=== PATIENT | male | born 1965 | race Caucasian/White ===

== ENCOUNTER 2018-05-23 07:59 | Emergency (ER) | payer SELFPAY ==
[2018-05-23] MEDS ORDERED: KETOROLAC 30 MG/ML VIAL IM ONE (08:07)
[2018-05-23] MEDS ORDERED: METHYLPREDNISOLONE 80MG/VIAL IM ONE (08:07)
--- NOTE | 2018-05-23 08:13 | Emergency Department Record ---
History of Present Illness - General Chief complaint: Pain Stated complaint: LEFT HIP PAIN Time Seen by Provider: 05/23/18 08:06 Source: Patient Mode of Arrival: Ambulatory Limitations: No limitations - History of Present Illness Initial comments: 53 yo male presents with left hip pain for a day. He reports he woke up yesterday with the pain. The pain starts in the hip and radiates down the leg. He has had the pain in the past. He has seen his PCP and a chiropractor for the pain. No weakness, numbness, changes in bowel or bladder issues. No history of hip surgery. He has been told he has lumbar disc disease. MD Complaint: Joint pain -: Days(s) (1) Location: Left History of Same: Yes -: Yes Arthralgia, Yes Myalgia Radiation: Proximal Quality: Aching Consistency: Constant Improves with: Immobilization Worsens with: Exertion, Palpation, Walking, Weight bearing Associated Symptoms: Denies other symptoms - Related Data Home Medications Medication Instructions Recorded Confirmed Last Taken Hydrocodone/Acetaminophen [[place] 1 each PO Q6H PRN 05/23/18 05/23/18 Unknown 10-325 Tablet] Lisinopril 10 mg PO DAILY 05/23/18 05/23/18 Unknown Tizanidine HCl [Zanaflex] 2 mg PO DAILY 05/23/18 05/23/18 Unknown Previous Rx's Medication Instructions Recorded Methylprednisolone [Medrol Dose 4 mg PO DAILY #1 tab.ds.pk 05/23/18 Pack] Allergies Allergy/AdvReac Type Severity Reaction Status Date / Time bee venom protein (honey bee) Allergy SWELLING Verified 05/23/18 08:11 (GENERAL) Penicillins Allergy PT UNSURE Verified 05/23/18 08:11 OF REACTION Review of Systems Constitutional: Denies: Chills, Fever, Malaise, Weakness Eyes: Denies: Eye discharge ENT: Denies: Congestion, Throat pain Respiratory: Denies: Cough Cardiovascular: Denies: Chest pain, Palpitations, Syncope Endocrine: Denies: Fatigue Gastrointestinal: Denies: Abdominal pain, Diarrhea, Nausea, Vomiting Genitourinary: Denies: Dysuria, Frequency, Hematuria Musculoskeletal: Reports: Arthralgia, Back pain, Myalgia. Denies: Joint swelling, Neck pain Skin: Denies: Bruising, Change in color, Rash Neurological: Denies: Abnormal gait, Headache, Numbness, Paresthesias, Tingling , Weakness Psychiatric: Denies: Anxiety Hematological/Lymphatic: Denies: Blood Clots, Easy bleeding, Easy bruising, Swollen glands Physical Exam - General General Appearance: Alert, Oriented x3, Cooperative, No acute distress Limitations: No limitations - Head Head exam: Atraumatic, Normal inspection - Eye Eye exam: Normal appearance. negative: Conjunctival injection, Scleral icterus - ENT ENT exam: Normal exam Ear exam: Normal external inspection Nasal Exam: Normal inspection Mouth exam: Normal external inspection - Neck Neck exam: Normal inspection, Full ROM. negative: Tenderness - Respiratory Respiratory exam: Normal lung sounds bilaterally. negative: Respiratory distress - Cardiovascular Cardiovascular Exam: Regular rate, Normal rhythm, Normal heart sounds - Rectal Rectal exam: Deferred - exam: Deferred - Extremities Extremities exam: Normal inspection, Full ROM, Normal capillary refill, Tenderness (lateral left hip). negative: Pedal edema Image of Full Body: 1 - tenderness to the hip, pain with full ROM, foot flexion and extension intact, no edema, no weakness, sensation is intact - Back Back exam: Reports: Normal inspection. Denies: CVA tenderness (R), CVA tenderness (L), Muscle spasm, Paraspinal tenderness, Tenderness, Vertebral tenderness - Neurological Neurological exam: Alert, Normal gait, Oriented X3. negative: Abnormal gait, Altered, Motor sensory deficit - Psychiatric Psychiatric exam: Normal affect, Normal mood. negative: Agitated, Anxious - Skin Skin exam: Dry, Intact, Normal color, Warm Course - Reevaluation(s) Reevaluation #1: 05/23/18 09:16 Hip XR report was reviewed. Greater trochanter spurring and sclerosis of the femoral head Disposition Disposition: Discharge Clinical Impression: Hip pain, left Sciatica Qualifiers: Laterality: left Qualified Code(s): M54.32 - Sciatica, left side Disposition: Home, Self-Care Condition: (1) Good Instructions: Sciatica (ED), Hip Pain (ED) Additional Instructions: Call your doctor for the next available follow up appointment Return to the ER for a recheck if worse, any new concerns or questions Take the prescriptions provided as directed Review this ER visit and the tests performed with your family doctor Use the crutches to minimize walking or weight bearing. Prescriptions: Methylprednisolone [Medrol Dose Pack] 4 mg PO DAILY #1 tab.ds.pk Referrals: DANITZA LARA [DOCTOR OF OSTEOPATH] - [facility] [Provider Group] Forms: Patient Portal Access Time of Disposition: 09:18 Quality - Quality Measures Quality Measures: N/A - Blood Pressure Screening Does Patient Have Any of the Following: Active Dx of HTN Blood Pressure Classification: Hypertensive Reading Systolic Measurement: 154 Diastolic Measurement: 121 Screening for High Blood Pressure: Patient Exclusion, Hx of HTN [[id number]]
--- NOTE | 2018-05-24 15:28 | RADIOLOGY REPORT ---
DATE: 05/23/2018 at 8:33 a.m. EXAM: LEFT HIP WITH AP PELVIS. HISTORY: ONSET LEFT HIP PAIN YESTERDAY; NO KNOWN INJURY. TECHNIQUE: AP pelvis, AP lateral left hip. COMPARISON: None. FINDINGS: There is prominent spurring along the greater trochanter. Left hip appears otherwise essentially negative. No fracture, dislocation, or destructive lesion identified. Mild spurring in the lower lumbar spine. There is a small, benign-appearing area of sclerosis in the subcapital region of the left femoral neck. IMPRESSION: 1. SPURRING INVOLVING THE GREATER TROCHANTER. 2. THE LEFT HIP APPEARS OTHERWISE ESSENTIALLY NEGATIVE. JOB NUMBER: [id number] MTDD
== END 2018-05-23 09:37 | disposition home or self-care (01) ==
LOC: ER 07:59
DX: M54.32 Sciatica, left side (principal); M25.552 Pain in left hip; I10 Essential (primary) hypertension; F17.210 Nicotine dependence, cigarettes, uncomplicated
CPT/HCPCS: 99283; 96372; 99284; 73502; J1885; J1040